=== PATIENT | female | born 2000 | race Hispanic/Latino ===

== ENCOUNTER 2025-05-24 18:04 | Emergency (ER) | payer SELFPAY ==
[~2025-05-24] VITALS: Ht 170.2 cm; Wt 65.8 kg
[2025-05-24 18:39] VITALS: PULSE 93; RESP 17; TEMP 98.4; O2SAT 100
== END 2025-05-24 19:17 | disposition home or self-care (01) ==
LOC: EDSEX 18:04 → ER 19:08
DX: Z03.89 Encounter for observation for other suspected diseases and conditions ruled out (principal)
CPT/HCPCS: 99282